=== PATIENT | male | born 1960 | race Caucasian/White ===

== ENCOUNTER → 2019-10-16 13:50 | Outpatient (CLI) | payer BC, SELFPAY ==
--- NOTE | ~2019-10-16 | CT_ITS ---
EXAMINATION: CT chest w con DATE: 10/16/2019 14:26 INDICATION: Left upper chest pain. Cough. History of smoking. TECHNIQUE: Computed tomography (CT) of the chest was performed with 100 cc Omnipaque 350 intravenous contrast. The dose-length product was 266.15 mGy-cm. Automated exposure control and iterative reconst ruction technique were employed. COMPARISON: CT dated 12/13/2009 FINDINGS: Heart size normal. No significant pleural or pericardial effusion. No thoracic lymphadenopa thy. There is cortical scarring of the kidneys. There is evidence for chronic granulomatous disease. There are a few subpleural pulmonary nodules measuring 2 mm or less predominantly affecting the upper lobes. There is emphysema. No significant change to pulmonary nodules allowing for differences of [place]. Mild thoracic spondylosis. No acute osseous abnormality. IMPRESSION: 1. Stable numerous bilateral subpleural nodules measuring 2 mm or less, likely benign. Follow-up low dose CT chest in 12 months recommended. 2: Emphysema. Reviewed, dictated and finalized at location [facility].
[2019-10-16 14:12] LABS: Estimated Glomerular Filt Rate > 60
== END ==
PROVIDERS: PCP Family Medicine; Visit Provider Nurse Practitioner Family
DX: R05 Cough (principal); R07.9 Chest pain, unspecified; R91.8 Other nonspecific abnormal finding of lung field; J43.9 Emphysema, unspecified
CPT/HCPCS: 36415; 71260; Q9967

== ENCOUNTER → 2020-04-11 10:15 | Outpatient (CLI) | payer BC, SELFPAY ==
--- NOTE | ~2020-04-11 | CT_ITS ---
EXAMINATION: CT chest w con DATE: 04/11/2020 10:45 INDICATION: pulmonary nodule TECHNIQUE: Computed tomography (CT) of the chest was performed without intravenous contrast. Addition al 3D reconstructions utilizing coronal maximum intensity projection (MIP) were performed. Automated exposure control and iterative reconstruction technique were employed. The dose-length product was 25 1.46 mGy-cm. COMPARISON: 10/16/2019 FINDINGS: Mild emphysema. No interval change in multiple scattered bilateral <4 mm solid and subsolid nodules, many which can be seen dating back to an earlier study dated 12/13/2009, likely sequela of old granulo matous disease. No new or enlarging pulmonary nodules. No other airspace disease, pulmonary edema, pl eural effusion or pneumothorax. Heart size is normal. Thoracic aorta is normal in caliber with no dis section. No pathologically enlarged thoracic lymphadenopathy. A few calcified right hilar and mediast inal lymph nodes consistent with old granulomatous disease. Small region of cortical scarring at the upper pole of the right kidney. Diffuse hepatic steatosis. Moderate thoracic spondylosis. IMPRESSION: 1. No interval change in numerous tiny bilateral pulmonary nodules most likely sequela of old granulo matous disease. 2. Mild emphysema. Reviewed, dictated and finalized at location [facility]. [employer] TE[employer]ER IMPRESSION: 1. No interval change in numerous tiny bilateral pulmonary nodules most likely sequela of old granulomatous disease. 2. Mild emphysema.
[2020-04-11 10:30] LABS: Estimated Glomerular Filt Rate > 60
== END ==
PROVIDERS: Visit Provider Nurse Practitioner Family
DX: R91.8 Other nonspecific abnormal finding of lung field (principal); J43.9 Emphysema, unspecified
CPT/HCPCS: 71260; Q9967

== ENCOUNTER 2023-04-13 11:48 | Outpatient (CLI) | payer BC, SELFPAY ==
--- NOTE | ~2023-04-13 | CT_ITS ---
CT Scan of the Chest without Contrast: Clinical Indication: Lung nodule Technique: Contiguous sections were acquired throughout the chest without intravenous contrast. Dose reduction technique was used on this scan by utilizing automated exposure control and iterative recon struction technique. The dose-length product (DLP) was 105.17 mGy-cm. COMPARISON: 04/11/2020 Findings: There is no evidence of any significant mediastinal, hilar or axillary lymphadenopathy. The mediastin al soft tissues appear normal. There is no evidence of pleural or pericardial effusion. There are subcentimeter peripheral pulmonary nodules, predominantly in the upper lobes. Findings are essentially stable from prior exam. Images through the upper abdomen reveal no abnormalities. Impression: Stable subcentimeter pulmonary nodules, most likely benign. Reviewed, dictated and finalized at [facility]. ECT SAFETY MANAGER Impression: Stable subcentimeter pulmonary nodules, most likely benign.
== END 2023-04-13 11:49 ==
LOC: MICIMG 11:49
PROVIDERS: PCP Nurse Practitioner Family; Visit Provider Nurse Practitioner Family
DX: R91.8 Other nonspecific abnormal finding of lung field (principal)
CPT/HCPCS: 71250